=== PATIENT | female | born 1995 | race Two or more races ===

== ENCOUNTER 2020-06-14 23:38 | Emergency (ER) | payer MEDICAID, OTHER ==
[~2020-06-14] VITALS: Ht 165.1 cm; Wt 81.6 kg
[2020-06-14 23:40] VITALS: BP 133/94
== END 2020-06-15 01:59 | disposition left against medical advice (07) ==
LOC: ER 23:40
DX: R10.31 Right lower quadrant pain (principal); Z53.21 Procedure and treatment not carried out due to patient leaving prior to being seen by health care provider